=== PATIENT | male | born 1985 | race Caucasian/White ===

== ENCOUNTER 2022-06-24 14:31 | Emergency (ER) | payer OTHER ==
[~2022-06-24] VITALS: Ht 193 cm; Wt 199.0 kg
[2022-06-24] MEDS ORDERED: ZESTRIL40 MG PO (14:52)
[2022-06-24 17:42] VITALS: BP 162/106
--- NOTE | 2022-06-25 07:34 | EKG ---
[facility] [address] [place], [place] [address] Signed Sinus tachycardia Possible Left atrial enlargement Minimal voltage criteria for LVH, may be normal variant ( [place] product ) Inferior infarct , age undetermined Abnormal ECG No previous ECGs available Confirmed by LIV HOYT MD ([id number] on 06/25/2022 7:34:17 AM Electronically Signed By: LIV HOYT MD 06/25/22 0734 PATIENT NAME: ODILON TURNER DM Electrocardiogram DATE OF : 85 PHYSICIAN: LIV HOYT MD REPORT #: [id number] REPORT IS CONFIDENTIAL AND NOT TO BE RELEASED WITHOUT AUTHORIZATION
== END 2022-06-24 17:40 | disposition home or self-care (01) ==
LOC: ED 14:31
DX: R07.9 Chest pain, unspecified (principal); I10 Essential (primary) hypertension; F15.10 Other stimulant abuse, uncomplicated; Z79.899 Other long term (current) drug therapy
CPT/HCPCS: 36415; 71045; 80053; 83735; 84484; 85025; 93005; 93010; 94640; 94664; 99285-25; A9270